=== PATIENT | female | born 1975 | race Caucasian/White ===

== ENCOUNTER 2019-08-01 13:05 | Outpatient (CLI) | payer OTHER | END 2019-08-01 13:10 | disposition home or self-care (01) | LOC: LAB 13:05 | DX: N20.0 Calculus of kidney (principal) ==

== ENCOUNTER → 2019-08-03 | Outpatient (CLI) | payer OTHER | END | disposition home or self-care (01) | LOC: MRI 08-01 12:15 → EDBD 08-01 12:15 → MRI 11:06 | DX: M54.42 Lumbago with sciatica, left side (principal) | CPT/HCPCS: 72148 ==